=== PATIENT | female | born 1995 | race African-American/Black ===

== ENCOUNTER 2020-09-04 15:25 | Emergency (ER) | payer MEDICAID ==
[~2020-09-04] VITALS: Ht 157.5 cm; Wt 55.3 kg
[2020-09-04] MEDS ORDERED: PANTOPRAZOLE SODIUM 40 MG TABLET.DR PO ONE ×2 (16:00→16:23)
[2020-09-04] MEDS ORDERED: MAG HYDROX/AL HYDROX/SIMETH 30 ML LIQUID UDC PO ONE (16:00)
[2020-09-04] MEDS ORDERED: LIDOCAINE VISCUS 2% 15 ML UDC MM ONE (16:00)
[2020-09-04 16:03] LABS: *URINE HCG, QUAL NEGATIVE (NEGATIVE)
--- NOTE | 2020-09-04 16:20 | NUR ---
Pec[facility] Gatherer assumes care: 1st contact with patient, AOX4, in position 2/2 severe abdominal(epigastric) sharp pains, respiration:easy & nonlabored, denies nausea@this moment, skin warm & dry
[2020-09-04] MEDS ORDERED: LIDOCAINE VISCUS 2% 15 ML UDC ONE (16:23)
[2020-09-04] MEDS ORDERED: MAG HYDROX/AL HYDROX/SIMETH 30 ML LIQUID UDC ONE (16:23)
[2020-09-04] MEDS ORDERED: ONDANSETRON 4 MG/2 ML VIAL IV ONE (16:45)
[2020-09-04] MEDS ORDERED: IV NORMAL SALINE 1000 ML BAG IV ONE (16:45)
[2020-09-04] MEDS ORDERED: MORPHINE SULFATE 2 MG/1 ML DISP.SYRIN IV ONE (16:45)
[2020-09-04] MEDS ORDERED: ONDANSETRON 4 MG/2 ML VIAL ONE (16:55)
[2020-09-04] MEDS ORDERED: MORPHINE SULFATE 4 MG/1 ML DISP.SYRIN ONE (16:55)
[2020-09-04 16:56] LABS: HEMATOCRIT 43.5 % (31.2-41.9); MEAN CORPUSCULAR HEMOGLOBIN 28.9 uug (24.7-32.8); MEAN CORPUSCULAR VOLUME 87.1 fL (75.5-95.3); PLATELET COUNT (AUTO) 374 K/uL (179-408)
[2020-09-04 17:08] LABS: CREATININE 0.9 mg/dL (0.6-1.3); POTASSIUM 3.9 mmol/L (3.5-5.1)
[2020-09-04 17:16] LABS: BILIRUBIN,DIRECT 0.2 mg/dL (0.0-0.2); BILIRUBIN,TOTAL 0.8 mg/dL (0.2-1.0); TOTAL PROTEIN, SERUM 8.1 g/dL (6.4-8.2)
--- NOTE | 2020-09-04 17:43 | NUR ---
Patient is resting comfortably on gurney, talking animatedly with her visitor. Epigastric pains are still at 6-6.5/10, MD notified.
[2020-09-04] MEDS ORDERED: OMEP40CA21 PO (18:09)
--- NOTE | 2020-09-04 18:10 | NUR ---
IV removed. Catheter intact and site benign. Pressure and 4x4 gauze applied to site. No bleeding noted. Patient discharged to home in stable condition with brisk steady gait. Written and verbal after care instructions given to patient and significant other. Patient & significant other verbalized understanding & compliance of instructions. Stressed follow up with her primary doctor or return to ER for worsening s/s.
== END 2020-09-04 18:10 | disposition home or self-care (01) ==
LOC: ER 15:27
DX: K29.70 Gastritis, unspecified, without bleeding (principal); Z83.79 Family history of other diseases of the digestive system
CPT/HCPCS: 36415; 80048; 80076; 83690; 84703; 85025; 96361; 96374; 96375; 99284; J2270; J2405; A4663; J7030